=== PATIENT | female | born 1945 ===

== ENCOUNTER 2023-07-23 05:28 | Day surgery (SDC) | payer OTHER ==
[~2023-07-23 05:28] MED LIST: GLIMEPIRIDE4 MG; JANUMET 50-1,01 EACH PO; LIPITOR40 M1 PO
[2023-07-23] MEDS ORDERED: CEFAZOLIN SODIUM 1,000 MG VIAL ONE (07:10)
[2023-07-23] MEDS ORDERED: CHLORHEXIDINE GLUCONATE 120 ML BOTTLE TOP ONE ×2 (07:21→08:15)
[2023-07-23] MEDS ORDERED: LIDOCAINE HCL/EPINEPHRINE 1% 50ML VIAL IJ ONE ×2 (07:21→08:15)
[2023-07-23] MEDS ORDERED: VANCOMYCIN HCL 1,000 MG VIAL ONE (07:21)
[2023-07-23] MEDS ORDERED: CEFAZOLIN SODIUM 1,000 MG VIAL IV ONE (08:15)
[2023-07-23] MEDS ORDERED: VANCOMYCIN HCL 1,000 MG VIAL IR ONE (08:15)
[2023-07-23] MEDS ORDERED: MACROBID 100 M100 MG PO (10:14)
[2023-07-23] MEDS ORDERED: TRAM1TAB98 PO (10:15)
== END 2023-07-23 13:05 | disposition home or self-care (01) ==
LOC: CIR.AMB 05:28
PROVIDERS: ATTEND Obstetrics & Gynecology Gynecology
DX: N81.11 Cystocele, midline (principal); N81.6 Rectocele; N81.5 Vaginal enterocele